=== PATIENT | male | born 2000 | race Caucasian/White ===

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

== ENCOUNTER 2019-09-15 22:14 | Observation (INO) | payer BC ==
[2019-09-15] MEDS ORDERED: GLUCAGON 1 MG/ML VIAL IVP STA (23:02)
--- NOTE | 2019-09-15 23:06 | ED ---
ENT HPI - General Chief complaint: ENT Stated complaint: FB in throat Time Seen by Provider: 09/15/19 22:56 Source: patient Mode of arrival: ambulatory Limitations: no limitations - History of Present Illness Initial comments: This patient is 18-year-old man who presents to be evaluated for what he suspects is a food impaction in the esophagus. Patient states she had been eating steak little over 2 hours ago when it felt like some of the meat became lodged in his esophagus. He states that since that time he cannot swallow anything. He indicates approximately the midpoint of the sternum. The patient on denies any dyspnea or gagging. MD complaint: difficulty swallowing Onset/Timin -: hour(s) Location: throat Severity: moderate Quality: aching Consistency: constant Improves with: none Worsens with: none - Related Data Home Medications Medication Instructions Recorded Confirmed No Known Home Medications 11/19/16 11/19/16 Allergies Allergy/AdvReac Type Severity Reaction Status Date / Time No Known Allergies Allergy Verified 09/15/19 22:45 Review of Systems ROS Statement: Those systems with pertinent positive or pertinent negative responses have been documented in the HPI. ROS Other: All systems not noted in ROS Statement are negative. Constitutional: Denies: fever, chills Respiratory: Denies: cough, dyspnea Cardiovascular: Denies: chest pain, palpitations Gastrointestinal: Denies: abdominal pain, vomiting, diarrhea Neurological: Denies: headache Past Medical History Past Medical History: No Reported History Additional Past Medical History / Comment(s): seasonal allergy History of Any Multi-Drug Resistant Organisms: None Reported Past Surgical History: No Surgical Hx Reported Past Psychological History: No Psychological Hx Reported Smoking Status: Never smoker Past Alcohol Use History: None Reported Past Drug Use History: None Reported General Exam Limitations: no limitations General appearance: alert, in no apparent distress Head exam: Present: atraumatic, normocephalic Eye exam: Present: normal appearance ENT exam: Present: normal oropharynx Neck exam: Present: normal inspection, full ROM. Absent: meningismus Respiratory exam: Present: normal lung sounds bilaterally. Absent: respiratory distress, wheezes, rales, rhonchi, stridor Cardiovascular Exam: Present: regular rate, normal rhythm, normal heart sounds. Absent: systolic murmur, diastolic murmur, rubs, gallop GI/Abdominal exam: Present: soft. Absent: distended, tenderness, guarding, rebound, rigid, mass Extremities exam: Present: normal inspection, normal capillary refill Back exam: Present: normal inspection Neurological exam: Present: alert Skin exam: Present: warm, dry, intact, normal color. Absent: rash Course Vital Signs 09/15/19 22:41 Temperature 98.1 F Pulse Rate 97 Respiratory 18 Rate Blood Pressure 123/81 O2 Sat by Pulse 100 Oximetry Disposition Referrals: Talha Vila Jr, [Primary Care Provider] - 1-2 days
[2019-09-15 23:35] LABS: Basophils # (A) 0.1 k/uL (0-0.2); Basophils % (A) 0 %; Eosinophils # (A) 0.4 k/uL (0-0.7); Eosinophils % (A) 3 %; HCT 48.4 % (39.0-53.0); HGB 15.5 gm/dL (13.0-17.5); Lymphocytes # (A) 2.2 k/uL (1.0-4.8); Lymphocytes % (A) 19 %; MCH 27.1 pg (25.0-35.0); MCHC 32.1 g/dL (31.0-37.0); MCV 84.6 fL (80.0-100.0); Monocytes # (A) 0.5 k/uL (0-1.0); Monocytes % (A) 4 %; Neutrophils # (A) 8.3 k/uL (1.3-7.7); Neutrophils % (A) 72 %; Platelet Count 228 k/uL (150-450); RBC 5.72 m/uL (4.30-5.90); RDW 13.2 % (11.5-15.5); WBC 11.6 k/uL (4.0-11.0)
[2019-09-15 23:40] LABS: African American GFR (CKD) >90 (>60 ml/min/1.73 sqM); Anion Gap 11 mmol/L; Blood Urea Nitrogen 14 mg/dL (9-20); Calcium 10.2 mg/dL (8.4-10.2); Carbon Dioxide 28 mmol/L (22-30); Chloride 103 mmol/L (98-107); Glucose 90 mg/dL (74-99); Non-African American GFR(CKD) >90 (>60 ml/min/1.73 sqM); Partial Thromboplastin Time 25.2 sec (22.0-30.0); Potassium 4.6 mmol/L (3.5-5.1); Prothrombin Time 10.1 sec (9.0-12.0); Sodium 142 mmol/L (137-145)
[2019-09-15] MEDS ORDERED: NALOXONE 0.4 MG/ML 1 ML VIAL IV PRN (23:52)
[2019-09-15] MEDS ORDERED: MORPHINE SULFATE 4 MG/ML SYRINGE IV PRN (23:52)
[2019-09-16] MEDS: SODIUM CHLORIDE 0.9% 1,000 ML IV SCH ×2 (02:00→08:35)
[2019-09-16] MEDS ORDERED: PROPOFOL 10 MG/ML 20 ML VIAL IV ONE (07:00)
[2019-09-16] MEDS ORDERED: LIDOCAINE 1% INJ 10MG/ML (20 ML MDV) ONE (07:00)
[2019-09-16] MEDS ORDERED: IV FLUID CONTINUATION 1,000 ML IV ONE ×2 (07:09)
--- NOTE | 2019-09-16 08:08 | P.PCN ---
Date of Procedure: 09/16/19 Procedure(s) Performed: BRIEF HISTORY: Patient is a 18-year-old, pleasant, white male admitted hospital when he presented to the emergency room around midnight with acute food impaction. He was eating a piece of steak for dinner last night and could not swallow any further. In the ER he was given glucagon with no help. He was able to handle his secretions and hence he was admitted to the hospital for observation and is scheduled for an upper endoscopy this morning for foreign body retrieval. He is been having intermittent dysphagia to solids for the last 2 years duration. PROCEDURE PERFORMED: Esophagogastroduodenoscopy with foreign body retrieval and biopsy. PREOPERATIVE DIAGNOSIS: Acute food impaction. IV sedation per anesthesia. PROCEDURE: After informed consent was obtained, the patient was brought into the endoscopy unit. IV sedation was administered by Anesthesia under continuous monitoring. Initially the Olympus GIF-140 video endoscope was inserted into the mouth. Esophagus intubated without any difficulty. It was gradually advanced into the distal esophagus with there was a large piece of food bolus identified. Gently using a snare as able to retrieve part food bolus followed by pushing the rest of the food bolus into the stomach. The scope at this time was advanced into the stomach and duodenum and carefully examined. The bulb and the second part of the duodenum appeared normal. The scope at this time was withdrawn to the stomach, adequately insufflated with air, and upon careful examination, mucosa of the antrum, body, cardia and the fundus appeared normal. The scope was then withdrawn into the esophagus. The GE junction was located at 45 cm from the incisors. There was an early distal esophageal stricture identified at the site of food impaction with there was some oozing identified. The mid and distal esophagus had thickened esophageal folds with longitudinal ridges, furrows and multiple mucosal rings all suspicious for years of age esophagitis and has multiple biopsies were done from the mid and distal esophagus. The proximal esophagus appeared normal and the patient tolerated the procedure well. IMPRESSION: 1. Distal esophageal stricture with food impaction status post foreign body retrieval as described above. 2. Multiple thickened mucosal folds with longitudinal ridges and foremost and multiple mucosal rings in the mid and distal esophagus suspicious for eosinophilic esophagitis, status post multiple biopsies to rule out eosinophilic esophagitis. RECOMMENDATIONS: The findings of this examination were discussed with the patient. He'll be on a full liquid diet for lunch and soft diet for the rest of the day. He'll be started on Prilosec 20 mg daily. He can be discharged home with outpatient follow-up in 2 weeks.
--- NOTE | 2019-09-16 08:21 | CONS ---
CONSULTATION DATE OF CONSULTATION: 09/16/2019 REFERRING PHYSICIAN: Dr. Talha Vila. REASON FOR CONSULTATION: Acute dysphagia. HISTORY OF PRESENT ILLNESS: The patient is a 18-year-old pleasant white male with history of intermittent dysphagia to solids, presents to the emergency room at midnight last night complaining of severe dysphagia after eating a piece of steak for dinner. He could not swallow any further. He tried drinking Coke and water. No help. In the ER, he was given glucagon with no help. He was able to handle his secretions and hence was admitted to the hospital for observation. We are consulted for EGD and foreign body retrieval. He still feels that the piece of steak is still stuck in his throat area. He denies any chest pain. He denies any heartburn. PAST MEDICAL HISTORY: Unremarkable. PAST SURGICAL HISTORY: Unremarkable. MEDICATIONS: At home none. ALLERGIES: No known drug allergies. SOCIAL HISTORY: No smoking. No alcohol use. No drug use. FAMILY HISTORY: Unremarkable. REVIEW OF SYSTEMS: CARDIOPULMONARY: No chest pain, shortness of breath. GENITOURINARY: No dysuria or hematuria. ENDOCRINE unremarkable. MUSCULOSKELETAL: Unremarkable. SKIN: Unremarkable. ENDOCRINE: Unremarkable. PSYCHIATRIC unremarkable. NEUROLOGY unremarkable. ENT/vision unremarkable. CONSTITUTIONAL: No recent weight loss. No fever, chills, night sweats. PHYSICAL EXAMINATION: Blood pressure 125/78, pulse rate 112, temperature 98.3. HEENT examination unremarkable. Conjunctivae pink. Sclerae anicteric. Oral cavity no lesions. NECK: No JVD or lymph node enlargement. CHEST: Clear to auscultation. HEART: Regular rate and rhythm. ABDOMEN soft. Bowel sounds positive. No organomegaly. EXTREMITIES: No pedal edema. SKIN no rashes. NEUROLOGIC: Alert and oriented x3. No focal deficits. LABS: WBC 11.6, hemoglobin 15, platelets normal. Basic metabolic panel is normal. Covid-19 negative. IMPRESSION: Acute food impaction in this patient with intermittent dysphagia to solids for the last 2 years duration. RECOMMENDATIONS: Proceed with EGD with foreign body removal. The patient understands risks, benefits, and complications of the procedure. Thank you for this consultation. MMODL / IJN: [id number] /
[2019-09-16 08:35] VITALS: BP 114/65; PULSE 76; RESP 16; TEMP 98
[2019-09-16] MEDS ORDERED: PANTOPRAZOLE 40 MG/10 ML VIAL IV SCH (09:00)
== END 2019-09-16 09:26 | disposition home or self-care (01) ==
LOC: EC 22:14 → 4SSUR 23:54
PROVIDERS: ADMIT Internal Medicine Gastroenterology; ATTEND Internal Medicine Gastroenterology
DX: T18.128A Food in esophagus causing other injury, initial encounter (principal); K22.2 Esophageal obstruction; Z03.818 Encounter for observation for suspected exposure to other biological agents ruled out; J30.2 Other seasonal allergic rhinitis
CPT/HCPCS: 96374; 99284; 36415; 88305; 80048; 85025; 85610; 85730; 87635; 43239; 43247; G0378; J1610; J2001; J2704; C9113

== ENCOUNTER 2021-07-22 07:08 | Day surgery (SDC) | payer BC, OTHER ==
[2021-07-20 14:21] VITALS: BMI 24.7
[~2021-07-22 07:08] MED LIST: DEXAMETHASONE SOD PHOSPHATE 4 MG/ML 1 ML VIAL IV PRN; FAMOTIDINE 20 MG/2 ML VIAL IV PRN; ONDANSETRON 4 MG/2 ML VIAL IVP PRN; metroNIDAZOLE-NS PMX 500 MG in SALINE 1 100ML.BAG IVPB PRN
[2021-07-22] MEDS ORDERED: LACTATED RINGERS 1,000 ML IV SCH (07:24)
[2021-07-22] MEDS ORDERED: LIDOCAINE 1% (10MG/ML) FOR IV START INTRADERMA PRN (07:24)
[2021-07-22] MEDS ORDERED: DEXAMETHASONE SOD PHOSPHATE 4 MG/ML 1 ML VIAL IV ONE (07:24)
[2021-07-22] MEDS ORDERED: MIDAZOLAM 2 MG/2 ML VIAL IV PRN (07:24)
[2021-07-22] MEDS ORDERED: ONDANSETRON 4 MG/2 ML VIAL IVP ONE (07:24)
[2021-07-22] MEDS ORDERED: MIDAZOLAM 2 MG/2 ML VIAL IVP ONE (08:09)
[2021-07-22] MEDS ORDERED: SUCCINYLCHOLINE CHLORIDE 100 MG/5 ML SYR IV ONE (08:35)
[2021-07-22] MEDS ORDERED: PROPOFOL 10 MG/ML 20 ML VIAL IV ONE (08:35)
[2021-07-22] MEDS ORDERED: LIDOCAINE 1% INJ 10MG/ML (20 ML MDV) ONE (08:35)
[2021-07-22] MEDS ORDERED: fentaNYL (PF) 50 MCG/ML 2 ML AMP ONE (08:35)
[2021-07-22] MEDS ORDERED: MIDAZOLAM 2 MG/2 ML VIAL ONE (08:35)
--- NOTE | 2021-07-22 09:28 | P.OP ---
Date of Procedure: 07/22/21 Preoperative Diagnosis: Chronic tonsillitis Chronic cryptic tonsillitis Postoperative Diagnosis: Same Procedure(s) Performed: Adenotonsillectomyadenoids cauterization Anesthesia: MAGNOLIAA Surgeon: Duane Eaton Estimated Blood Loss (ml): 3 Pathology: other (Tonsils) Condition: stable Disposition: PACU Indications for Procedure: This 20-year-old white male who has difficulties with chronic and recurrent tonsillitis as well as tonsilliths recurrently Operative Findings: Adenoids mildly enlarged and therefore were vaporized with suction cautery. Tonsils +2.5 bilaterally are cryptic was sulfur granules in the crypts Description of Procedure: PROCEDURE: The patient was brought into the operative suite and placed in the supine position. The patient underwent induction of general anesthesia with oral endotracheal intubation without difficulty. The table was turned 90 degrees and the patient was positioned with a shoulder roll and head donut. The patient was prepped and draped in the usual aseptic fashion. The McIvor mouth gag was placed. The soft palate was palpated. No submucous cleft was noted. Red rubber Valente catheters were placed through both nasal cavities and pulled through the oropharynx for soft palate retraction. The nasopharynx was examined with a mirror examiner and the adenoids were vaporized/cauterized with suction cautery. This ablated the adenoids and there was good hemostasis noted. The red rubber Valente catheters were removed. The left tonsil was then grasped with a curved Allis clamp and dissected from the tonsillar fossa in a superior to inferior direction using both blunt and electrocautery dissection until the tonsils was removed. Once the tonsils were removed, hemostasis was gained with suction cautery. Attention was then turned to the right where the right tonsil was removed exactly as the left had been. Once hemostasis was obtained and remained good in both tonsillar fossa as well as the nasopharynx, the patient was suctioned in an orogastric fashion and the McIvor mouth gag was removed. The patient was then allowed to emerge from general anesthesia, having tolerated the procedure well. The patient was extubated in the operative suite and transferred to the postoperative recovery area in satisfactory condition.
[2021-07-22] MEDS: HYDROmorphone 0.5 MG/0.5 ML SYRINGE IVP PRN ×2 (09:55→10:18)
[2021-07-22 10:14] VITALS: TEMP 97.1
[2021-07-22 10:34] VITALS: RESP 18
[2021-07-22 11:05] VITALS: BP 117/81
[2021-07-22] MEDS ORDERED: HYDROcodone/APAP 5-325MG 1 EACH TAB ONE (11:21)
[2021-07-22] MEDS ORDERED: HYDROcodone/APAP 5-325MG 1 EACH TAB PO ONE (11:22)
[2021-07-22 11:49] VITALS: PULSE 88
== END 2021-07-22 12:35 | disposition home or self-care (01) ==
LOC: OR 07:08
PROVIDERS: ATTEND Otolaryngology
DX: J35.01 Chronic tonsillitis (principal); J45.909 Unspecified asthma, uncomplicated; E11.9 Type 2 diabetes mellitus without complications; E78.00 Pure hypercholesterolemia, unspecified; Z91.09 Other allergy status, other than to drugs and biological substances
CPT/HCPCS: 88304; 42821; J2250; J1100; J0690; J2405; J2001; J3010; J0330; J2704; J1170; J1790